=== PATIENT | male | born 1945 | race Caucasian/White ===

== ENCOUNTER 2023-10-30 17:56 | Inpatient (IN) | payer MEDICARE ==
[~2023-10-30] VITALS: Ht 172.7 cm; Wt 85.7 kg
[2023-10-30] MEDS ORDERED: LORAZEPAM 0.5 MG TABLET PO PRN (21:00)
[2023-10-30] MEDS ORDERED: MAG HYDROX/AL HYDROX/SIMETH 30 ML UDC PO PRN (21:00)
[2023-10-30] MEDS ORDERED: MAGNESIUM HYDROXIDE 30 ML UDC PO PRN (21:00)
[2023-10-30] MEDS ORDERED: ACETAMINOPHEN 325 MG TABLET PO PRN (21:00)
[2023-10-30] MEDS: BLOOD SUGAR DIAGNOSTIC 1 EACH STRIP IN ONE (21:45)
[2023-10-30 21:52] VITALS: BP 119/64; TEMP 97.9; O2SAT 97
[2023-10-30] MEDS: ZOLPIDEM TARTRATE 5 MG TABLET PO PRN (23:17)
[2023-10-30] MEDS ORDERED: FLUT16SP BNOSTRILS (23:45)
[2023-10-30] MEDS ORDERED: BUPR-78 PO (23:45)
[2023-10-30] MEDS ORDERED: TRAZ-182 PO (23:45)
[2023-10-30] MEDS ORDERED: DEXT15DR23 EACHEYE (23:45)
[2023-10-30] MEDS ORDERED: RIBO100T3 PO (23:45)
[2023-10-30] MEDS ORDERED: MULT-978 PO (23:45)
[2023-10-30] MEDS ORDERED: TAVA10SO2 TP (23:45)
[2023-10-30] MEDS ORDERED: ALEN70TA80 PO (23:45)
[2023-10-30] MEDS ORDERED: TORS10TA17 PO (23:45)
[2023-10-30] MEDS ORDERED: DICL1KIT14 TP (23:45)
[2023-10-30] MEDS ORDERED: OMEG1CAP40 PO (23:45)
[2023-10-30] MEDS ORDERED: MAGN400T26 PO (23:45)
[2023-10-30] MEDS ORDERED: CHLO25TA2 PO (23:45)
[2023-10-30] MEDS ORDERED: RIVA10TA PO (23:45)
[2023-10-30] MEDS ORDERED: TAMS-12 PO (23:45)
[2023-10-31] MEDS ORDERED: LORAZEPAM 0.5 MG TABLET PO PRN (01:30)
[2023-10-31 08:00] VITALS: BP 140/78; TEMP 97.6; O2SAT 96
[2023-10-31] MEDS ORDERED: DICL100G26 TP (08:10)
[2023-10-31] MEDS ORDERED: Medication Not On Formulary EA (Omega-3 Fatty Acids/Fish Oil (Omega 3 1,000 Mg Softgel) PO SCH (09:00)
[2023-10-31] MEDS: MAGNESIUM OXIDE 400 MG TABLET PO SCH (09:12)
[2023-10-31] MEDS: TORSEMIDE 20 MG TABLET PO SCH (09:12)
[2023-10-31] MEDS: FLUTICASONE PROPIONATE 16 GM BOTTLE NS SCH (09:13)
[2023-10-31] MEDS: POLYVINYL ALCOHOL 15 ML BOTTLE EACHEYE SCH (09:14)
[2023-10-31 09:44] LABS: BILIRUBIN,TOTAL 0.9 mg/dL (0.2-1.0); CALCIUM, SERUM 8.9 mg/dL (8.5-10.1); CARBON DIOXIDE 28 mmol/L (21-32); CHLORIDE 104 mmol/L (98-107); CREATININE 1.3 mg/dL (0.6-1.3); GLUCOSE 98 mg/dL (74-106); POTASSIUM 3.1 mmol/L (3.5-5.1); SODIUM SERUM 141 mmol/L (136-145); UREA NITROGEN, BLOOD 22 mg/dL (7-18)
[2023-10-31 09:45] LABS: ALANINE AMINOTRANSFERASE 21 U/L (12-78); ALBUMIN 3.2 g/dL (3.4-5.0); ALKALINE PHOSPHATASE 73 U/L (46-116); ASPARTATE AMINOTRANSFERASE 11 U/L (15-37); TOTAL PROTEIN, SERUM 7.4 g/dL (6.4-8.2)
[2023-10-31 09:46] LABS: CHOLESTEROL 247 mg/dL (<200); HDL CHOLESTEROL 54 mg/dL (40-60); LDL 157 mg/dL (0-99); TRIGLYCERIDES 180 mg/dL (30-150)
[2023-10-31] MEDS: POTASSIUM CHLORIDE 20 MEQ TAB.PRT.SR PO ONE (10:14)
[2023-10-31] MEDS ORDERED: TORSEMIDE 20 MG TABLET PO SCH (13:05)
[2023-10-31] MEDS ORDERED: TORSEMIDE 5 MG TABLET PO ONE (13:30)
[2023-10-31] MEDS: TORSEMIDE 20 MG TABLET PO ONE (15:15)
[2023-10-31 16:00] VITALS: BP 124/74; TEMP 97.8; O2SAT 99
[2023-10-31] MEDS: VITAMINS A AND D 56.7 GM TUBE TP PRN (16:26)
[2023-10-31] MEDS: RIVAROXABAN 10 MG TABLET PO SCH (16:27)
[2023-10-31 18:25] LABS: THYROID STIMULATING HORMONE 3.297 uIU/mL (0.358-3.74)
[2023-10-31 20:00] VITALS: BP 122/71; TEMP 98; O2SAT 98
[2023-10-31 20:49] LABS: CREATININE 1.5 mg/dL (0.6-1.3)
[2023-10-31] MEDS: buPROPion SR 100 MG TABLET.ER PO SCH (21:00)
[2023-10-31] MEDS: TRAZODONE 50 MG TABLET PO SCH (21:21)
[2023-10-31] MEDS: TAMSULOSIN 0.4 MG CAP.SR.24H GT SCH (21:21)
[2023-11-01 08:00] VITALS: BP 113/64; TEMP 97.8; O2SAT 98
[2023-11-01] MEDS: TAMSULOSIN 0.4 MG CAP.SR.24H PO SCH (09:09)
[2023-11-01] MEDS: TORSEMIDE 20 MG TABLET PO SCH (09:09)
[2023-11-01] MEDS: CYANOCOBALAMIN 1,000 MCG/ML VIAL IM SCH (09:38)
[2023-11-01] MEDS: BUPROPION XL 150 MG TAB.ER.24 PO SCH (09:38)
[2023-11-01 16:00] VITALS: BP 117/66; TEMP 98.1; O2SAT 97
[2023-11-01 20:00] VITALS: BP 131/82; TEMP 97.6; O2SAT 99
[2023-11-02 08:00] VITALS: BP 145/99; TEMP 99.9; O2SAT 94
[2023-11-02 08:13] LABS: BASOPHILS % (AUTO) 0.6 % (0.0-2.0); EOSINOPHILS # (AUTO) 0.2 K/uL (0.0-0.7); HEMATOCRIT 39 % (39-51); HEMOGLOBIN 13.4 g/dL (13.5-17.5); LYMPHOCYTES # (AUTO) 1.5 K/uL (0.8-4.8); LYMPHOCYTES % (AUTO) 31.6 % (20.0-44.0); MEAN CORPUSCULAR HEMOGLOBIN 30 PG (26.0-33.0); MEAN CORPUSCULAR HGB CONC 34 g/dl (31.0-36.0); MEAN CORPUSCULAR VOLUME 88 fL (80-96); MONOCYTES # (AUTO) 0.5 K/uL (0.1-1.30); MONOCYTES % (AUTO) 10.6 % (2.0-12.0); NEUTROPHILS # (AUTO) 2.4 K/uL (1.8-8.9); NEUTROPHILS % (AUTO) 52.2 % (43.0-81.0); PLATELET COUNT (AUTO) 238 K/uL (150-450); RED BLOOD CELL COUNT(AUTO) 4.43 MIL/uL (4.5-6.0); RED CELL DISTRIBUTION WIDTH 13.6 % (11.5-15.0); WHITE BLOOD COUNT (AUTO) 4.7 K/uL (4.3-11.0)
[2023-11-02 09:02] LABS: CALCIUM, SERUM 8.2 mg/dL (8.5-10.1); CARBON DIOXIDE 30 mmol/L (21-32); CHLORIDE 100 mmol/L (98-107); CREATININE 1.4 mg/dL (0.6-1.3); GLUCOSE 98 mg/dL (74-106); MAGNESIUM 2.4 mg/dL (1.8-2.4); PHOSPHORUS 3.6 mg/dL (2.5-4.9); POTASSIUM 3.1 mmol/L (3.5-5.1); SODIUM SERUM 138 mmol/L (136-145); UREA NITROGEN, BLOOD 28 mg/dL (7-18)
[2023-11-02 16:00] VITALS: BP 98/55; TEMP 98.8; O2SAT 99
[2023-11-02] MEDS: POTASSIUM CHLORIDE 20 MEQ TAB.PRT.SR PO ONE (17:26)
[2023-11-02 20:00] VITALS: BP 97/59; TEMP 98.4; O2SAT 97
[2023-11-02 20:34] VITALS: BP 97/59; TEMP 98.4; O2SAT 97
[2023-11-03] MEDS: ALENDRONATE 70 MG TABLET PO SCH (07:54)
[2023-11-03 08:00] VITALS: BP 105/65; TEMP 97.7; O2SAT 95
[2023-11-03 08:39] LABS: INR 1.17 (0.91-1.10); PROTHROMBIN TIME 12.3 SECS (9.2-11.1)
[2023-11-03 16:00] VITALS: BP 103/57; TEMP 98; O2SAT 95
[2023-11-03 21:09] VITALS: BP 109/61; TEMP 97.9; O2SAT 96
[2023-11-04 08:00] VITALS: BP 104/66; TEMP 98.7; O2SAT 97
[2023-11-04 16:00] VITALS: BP 142/78; TEMP 98.6; O2SAT 96
[2023-11-04 20:27] VITALS: BP 114/71; TEMP 99; O2SAT 96
[2023-11-05 08:00] VITALS: BP 108/54; TEMP 98.1; O2SAT 94
[2023-11-05 16:00] VITALS: BP 131/78; TEMP 98; O2SAT 96
[2023-11-05 20:31] VITALS: BP 123/72; TEMP 98.2; O2SAT 95
[2023-11-06 07:09] LABS: BASOPHILS % (AUTO) 0.9 % (0.0-2.0); EOSINOPHILS # (AUTO) 0.3 K/uL (0.0-0.7); EOSINOPHILS % (AUTO) 6.1 % (0.0-6.0); HEMATOCRIT 40 % (39-51); HEMOGLOBIN 13.3 g/dL (13.5-17.5); LYMPHOCYTES # (AUTO) 1.5 K/uL (0.8-4.8); LYMPHOCYTES % (AUTO) 28.6 % (20.0-44.0); MEAN CORPUSCULAR HEMOGLOBIN 30 PG (26.0-33.0); MEAN CORPUSCULAR HGB CONC 34 g/dl (31.0-36.0); MEAN CORPUSCULAR VOLUME 90 fL (80-96); MONOCYTES # (AUTO) 0.5 K/uL (0.1-1.30); MONOCYTES % (AUTO) 9.8 % (2.0-12.0); NEUTROPHILS # (AUTO) 2.8 K/uL (1.8-8.9); NEUTROPHILS % (AUTO) 54.6 % (43.0-81.0); PLATELET COUNT (AUTO) 262 K/uL (150-450); RED BLOOD CELL COUNT(AUTO) 4.43 MIL/uL (4.5-6.0); RED CELL DISTRIBUTION WIDTH 13.7 % (11.5-15.0); WHITE BLOOD COUNT (AUTO) 5.2 K/uL (4.3-11.0)
[2023-11-06 07:59] LABS: ALBUMIN 2.8 g/dL (3.4-5.0); BILIRUBIN,TOTAL 0.6 mg/dL (0.2-1.0); CALCIUM, SERUM 8.4 mg/dL (8.5-10.1); CREATININE 1.3 mg/dL (0.6-1.3); MAGNESIUM 2.6 mg/dL (1.8-2.4); PHOSPHORUS 3.4 mg/dL (2.5-4.9); POTASSIUM 3.9 mmol/L (3.5-5.1); TOTAL PROTEIN, SERUM 6.8 g/dL (6.4-8.2)
[2023-11-06 08:00] VITALS: BP 111/74; TEMP 98.6; O2SAT 97
[2023-11-06 16:00] VITALS: BP 122/73; TEMP 97.9; O2SAT 97
[2023-11-06 20:00] VITALS: BP_SYST 118; BP_DIAS 68; BP_DIAS 84; TEMP 97.9; O2SAT 98
[2023-11-07 08:00] VITALS: BP 100/60; TEMP 97.9; O2SAT 99
[2023-11-07 13:09] LABS: *SPE A/G RATIO 0.9 (0.7-1.7); *SPE ALBUMIN 2.9 g/dL (2.9-4.4); *SPE ALPHA-1-GLOBULIN 0.2 g/dL (0.0-0.4); *SPE ALPHA-2-GLOBULIN 0.8 g/dL (0.4-1.0); *SPE BETA GLOBULIN 1.1 g/dL (0.7-1.3); *SPE GLOBULIN, TOTAL 3.3 g/dL (2.2-3.9); *SPE M-SPIKE Not Observed g/dL (Not Observed); *SPE PROTEIN TOTAL 6.2 g/dL (6.0-8.5); *SPEGAMMA GLOBULIN 1.2 g/dL (0.4-1.8)
[2023-11-07 21:06] LABS: PTH, INTACT 57 pg/mL (15-65)
== END 2023-11-07 13:40 | disposition home or self-care (01) | DRG 885 ==
LOC: GPS 20:27
PROVIDERS: ADMIT Psychiatry & Neurology Psychiatry; ATTEND Nurse Practitioner Acute Care
DX: F33.3 Major depressive disorder, recurrent, severe with psychotic symptoms (principal); N17.0 Acute kidney failure with tubular necrosis; N18.9 Chronic kidney disease, unspecified; F03.93 Unspecified dementia, unspecified severity, with mood disturbance; Z59.00 Homelessness unspecified; R45.851 Suicidal ideations; L03.116 Cellulitis of left lower limb; L03.115 Cellulitis of right lower limb; N17.9 Acute kidney failure, unspecified; F29 Unspecified psychosis not due to a substance or known physiological condition; I48.91 Unspecified atrial fibrillation; M19.90 Unspecified osteoarthritis, unspecified site; Z79.899 Other long term (current) drug therapy; M81.0 Age-related osteoporosis without current pathological fracture; F07.81 Postconcussional syndrome; E87.6 Hypokalemia; E78.5 Hyperlipidemia, unspecified; J30.9 Allergic rhinitis, unspecified; N40.0 Benign prostatic hyperplasia without lower urinary tract symptoms; Z87.820 Personal history of traumatic brain injury; E53.8 Deficiency of other specified B group vitamins; Z86.718 Personal history of other venous thrombosis and embolism; Z79.01 Long term (current) use of anticoagulants; N61.1 Abscess of the breast and nipple; L84 Corns and callosities; Z85.46 Personal history of malignant neoplasm of prostate; B35.1 Tinea unguium; R60.9 Edema, unspecified; Z73.6 Limitation of activities due to disability; I13.10 Hypertensive heart and chronic kidney disease without heart failure, with stage 1 through stage 4 chronic kidney disease, or unspecified chronic kidney disease; N13.9 Obstructive and reflux uropathy, unspecified; N63.10 Unspecified lump in the right breast, unspecified quadrant
CPT/HCPCS: 36415; 70450-TC; 76642-RT-TC; 80048-TC; 80053-TC; 80061-TC; 82550-TC; 82565-TC; 82607-TC; 82962-TC; 83735-TC; 83921; 83970; 84100-TC; 84155; 84165; 84439-TC; 84443-TC; 85025-TC; 85610-TC; 87081-TC; J3420